=== PATIENT | female | born 1985 | race African-American/Black ===

== ENCOUNTER 2018-10-15 01:05 | Emergency (ER) | payer OTHER ==
[~2018-10-15] VITALS: Ht 170.2 cm; Wt 69.4 kg
[2018-10-15 01:14] VITALS: Ht 170.2 cm; Wt 69.4 kg
[2018-10-15 02:18] LABS: BASOPHIL % 0.6 % (0-2); PLATELET COUNT 236 x10^3mcL (130-400)
[2018-10-15 02:25] LABS: RED CELL DISTRIBUTION WIDTH 20.2 % (11.5-14.5)
[2018-10-15 02:33] LABS: CALCIUM 9.6 mg/dL (8.5-10.1); CARBON DIOXIDE 20.2 mmol/L (21-32); CHLORIDE SERUM 105 mmol/L (98-107); CREATININE SERUM 0.8 mg/dL (0.6-1.0); GFR1 > 60 mL/min; GLUCOSE SERUM 100 mg/dL (74-106); POTASSIUM SERUM 4.1 mmol/L (3.5-5.1); SODIUM SERUM 141 mmol/L (136-145)
[2018-10-15 02:38] LABS: ALBUMIN 4.2 g/dL (3.4-5.0); ALKALINE PHOSPHATASE 80 U/L (46-116); ALT/SGPT 16 U/L (14-59); AST/SGOT 8 U/L (15-37); BILIRUBIN TOTAL 0.21 mg/dL (0.20-1.00); LIPASE 62 IU/L (73-393); TOTAL PROTEIN, SERUM 7.7 g/dL (6.4-8.2)
[2018-10-15 02:39] LABS: acanthocyte (spur cell) 1+; ovalocyte/elliptocyte 1+; rbc morphology (normal/abnorm) ABNORMAL (NORMAL); schistocyte (helmet cell) 1+
[2018-10-15 03:02] VITALS: BP 119/33
== END 2018-10-15 03:02 | disposition home or self-care (01) ==
LOC: ED 01:05
PROVIDERS: Emergency Medicine
DX: J32.9 Chronic sinusitis, unspecified (principal); J40 Bronchitis, not specified as acute or chronic
CPT/HCPCS: J2405; J7030